=== PATIENT | female | born 1975 | race Caucasian/White ===

== ENCOUNTER 2021-08-30 15:40 | Emergency (ER) | payer OTHER ==
[2021-08-30 16:27] LABS: HEMOGLOBIN 14.1 gm/dl (12.3-15.3); RED BLOOD COUNT 4.53 M/UL (4.00-5.10); WHITE BLOOD COUNT 8.8 K/UL (4.5-11.0)
[2021-08-30 16:46] LABS: BUN/CREATININE RATIO 24 (0-10)
== END 2021-08-30 17:30 | disposition home or self-care (01) ==
LOC: ER1 15:40
PROVIDERS: Emergency Medicine
DX: M54.9 Dorsalgia, unspecified (principal); E66.9 Obesity, unspecified; F17.210 Nicotine dependence, cigarettes, uncomplicated; Z88.2 Allergy status to sulfonamides
CPT/HCPCS: 80053; 81001; 83690; 84703; 85025; 99284